=== PATIENT | female | born 1950 | race Two or more races ===

== ENCOUNTER 2024-07-26 17:59 | Inpatient (IN) | payer MEDICARE, OTHER ==
[~2024-07-26] VITALS: Ht 152.4 cm; Wt 49.9 kg
[2024-07-26] MEDS: LIDOCAINE 5% (PATCH) 1 EA PATCH TP SCH ×2 (19:30→19:50)
[2024-07-26] MEDS ORDERED: LIDOCAINE 5% (PATCH) 1 EA PATCH TP ONE ×2 (19:34→19:47)
[2024-07-26] MEDS ORDERED: predniSONE 20 MG TABLET ONE (19:35)
[2024-07-26] MEDS: predniSONE 20 MG TABLET PO ONE (19:39)
[2024-07-26 21:20] VITALS: BP 119/68; TEMP 97.7; O2SAT 98
[2024-07-26 21:48] LABS: BASOPHILS % (AUTO) 0.4 % (0.0-2.0); EOSINOPHILS # (AUTO) 0.1 K/uL (0.0-0.7); EOSINOPHILS % (AUTO) 0.4 % (0.0-6.0); HEMATOCRIT 42 % (33-45); HEMOGLOBIN 14.2 g/dL (11.5-14.8); LYMPHOCYTES # (AUTO) 1.5 K/uL (0.8-4.8); LYMPHOCYTES % (AUTO) 12.1 % (20.0-44.0); MEAN CORPUSCULAR HEMOGLOBIN 32 PG (26.0-33.0); MEAN CORPUSCULAR HGB CONC 34 g/dl (31.0-36.0); MEAN CORPUSCULAR VOLUME 93 fL (82-100); MONOCYTES # (AUTO) 0.3 K/uL (0.1-1.30); MONOCYTES % (AUTO) 2.6 % (2.0-12.0); NEUTROPHILS # (AUTO) 10.9 K/uL (1.8-8.9); NEUTROPHILS % (AUTO) 84.5 % (43.0-81.0); PLATELET COUNT (AUTO) 173 K/uL (150-450); RED BLOOD CELL COUNT(AUTO) 4.48 MIL/uL (4.0-5.2); RED CELL DISTRIBUTION WIDTH 13.3 % (11.5-15.0); WHITE BLOOD COUNT (AUTO) 12.8 K/uL (4.3-11.0)
[2024-07-26 21:54] LABS: CALCIUM, SERUM 8.9 mg/dL (8.5-10.1); CREATININE 0.8 mg/dL (0.6-1.3)
[2024-07-26] MEDS ORDERED: ACETAMINOPHEN 325 MG TABLET PO PRN (22:30)
[2024-07-26] MEDS ORDERED: ONDANSETRON HCL/PF 4 MG/2 ML VIAL IVP PRN (22:30)
[2024-07-26] MEDS ORDERED: ENOXAPARIN SODIUM 40 MG/0.4 ML DISP.SYRIN SQ ONE (22:34)
[2024-07-26] MEDS: ENOXAPARIN SODIUM 40 MG/0.4 ML DISP.SYRIN SQ SCH (22:35)
[2024-07-26] MEDS ORDERED: hydrALAZINE HCL IV 20 MG VIAL IV PRN (23:30)
[2024-07-27] MEDS ORDERED: TIOT18CA3 IH (00:33)
[2024-07-27] MEDS ORDERED: ROSU5TAB PO (00:33)
[2024-07-27] MEDS ORDERED: NIFE30TA2 PO (00:33)
[2024-07-27] MEDS ORDERED: CLON0.5T4 PO (00:33)
[2024-07-27] MEDS: MORPHINE SULFATE INJ 2 MG/ML DISP.SYRIN IV PRN (01:35)
[2024-07-27] MEDS: clonazePAM 0.5 MG TABLET PO SCH (02:05)
[2024-07-27 07:06] LABS: BASOPHILS % (AUTO) 0.5 % (0.0-2.0); HEMATOCRIT 38 % (33-45); LYMPHOCYTES # (AUTO) 1.2 K/uL (0.8-4.8); LYMPHOCYTES % (AUTO) 19.2 % (20.0-44.0); MEAN CORPUSCULAR HEMOGLOBIN 32 PG (26.0-33.0); MEAN CORPUSCULAR HGB CONC 34 g/dl (31.0-36.0); MEAN CORPUSCULAR VOLUME 92 fL (82-100); MONOCYTES # (AUTO) 0.3 K/uL (0.1-1.30); MONOCYTES % (AUTO) 4.5 % (2.0-12.0); NEUTROPHILS # (AUTO) 4.6 K/uL (1.8-8.9); NEUTROPHILS % (AUTO) 75.8 % (43.0-81.0); PLATELET COUNT (AUTO) 168 K/uL (150-450); RED BLOOD CELL COUNT(AUTO) 4.13 MIL/uL (4.0-5.2); RED CELL DISTRIBUTION WIDTH 12.9 % (11.5-15.0); WHITE BLOOD COUNT (AUTO) 6.1 K/uL (4.3-11.0)
[2024-07-27 07:31] LABS: ALBUMIN 3.2 g/dL (3.4-5.0); BILIRUBIN,TOTAL 0.6 mg/dL (0.2-1.0); CALCIUM, SERUM 8.5 mg/dL (8.5-10.1); CREATININE 0.8 mg/dL (0.6-1.3); MAGNESIUM 2.1 mg/dL (1.8-2.4); PHOSPHORUS 3.9 mg/dL (2.5-4.9); POTASSIUM 4.1 mmol/L (3.5-5.1); TOTAL PROTEIN, SERUM 6.4 g/dL (6.4-8.2)
[2024-07-27 08:00] VITALS: BP 130/61; TEMP 97.3; O2SAT 98
[2024-07-27] MEDS: DOCUSATE SODIUM LIQ 100 MG/10 ML UDC PO SCH (08:23)
[2024-07-27] MEDS: POLYETHYLENE GLYCOL 3350 17 GM POWD.PACK PO SCH (08:23)
[2024-07-27] MEDS: GABAPENTIN 100 MG CAPSULE PO SCH (13:11)
[2024-07-27] MEDS: CELECOXIB 100 MG CAPSULE PO SCH (13:11)
[2024-07-27 16:00] VITALS: BP 136/69; TEMP 97.7
[2024-07-27] MEDS: DOCUSATE SODIUM 100 MG CAPSULE PO SCH (17:13)
[2024-07-27 20:00] VITALS: BP 127/60; TEMP 98.2; O2SAT 97
[2024-07-28] MEDS: PANTOPRAZOLE 40 MG TABLET.DR PO SCH (07:43)
[2024-07-28 08:00] VITALS: BP 134/59; TEMP 98.2; O2SAT 98
[2024-07-28 16:30] VITALS: BP 134/56; TEMP 98.2; O2SAT 100
[2024-07-28 20:00] VITALS: BP_SYST 127; BP_DIAS 53; BP_DIAS 58; TEMP 97.7; O2SAT 97
[2024-07-29 08:22] VITALS: BP 128/66; TEMP 98; O2SAT 99
[2024-07-29] MEDS: MINERAL OIL/PETROL OINT 396 GM JAR TP SCH (10:24)
[2024-07-29] MEDS ORDERED: GABA100C PO (11:45)
[2024-07-29] MEDS ORDERED: PANT40TA49 PO (11:45)
[2024-07-29 13:52] LABS: THYROID STIMULATING HORMONE 2.18 uIU/mL (0.358-3.74)
[2024-07-29 15:19] LABS: APPEARANCE,URINE CLEAR (CLEAR); BILIRUBIN,URINE NEGATIVE (NEGATIVE); BLOOD, URINE TRACE-INTA Ery/uL (NEGATIVE); COLOR,URINE YELLOW (YELLOW); KETONES,URINE NEGATIVE (NEGATIVE); LEUKOCYTE ESTERASE ,URINE NEGATIVE (NEGATIVE); NITRITE, URINE NEGATIVE (NEGATIVE); PROTEIN,URINE NEGATIVE (NEGATIVE); UGLUCOSE NEGATIVE (NEGATIVE); UROBILINOGEN,URINE 0.2 EU/dL (0.2)
[2024-07-29 15:50] LABS: ADD URINE CULTURE NO; RBC,URINE 0-2 /HPF (0-2); WBC,URINE 0-2 /HPF (0-3)
[2024-07-29 15:51] LABS: BACTERIA,URINE Few /HPF (None Seen); SQUAMOUS EPITHELIAL CELL,UR Few /HPF (None Seen)
[2024-07-29 16:03] VITALS: BP 144/56; TEMP 98.1; O2SAT 97
[2024-07-30 12:07] LABS: FOLIC ACID 10.7 ng/mL (>3.0)
== END 2024-07-29 18:47 | DRG 641 ==
LOC: ER 18:51 → MED 22:54
PROVIDERS: ADMIT Internal Medicine; ATTEND Internal Medicine
DX: R62.7 Adult failure to thrive (principal); F41.9 Anxiety disorder, unspecified; I73.00 Raynaud's syndrome without gangrene; G89.4 Chronic pain syndrome; D72.829 Elevated white blood cell count, unspecified; I10 Essential (primary) hypertension; Z68.21 Body mass index [BMI] 21.0-21.9, adult; R53.1 Weakness; M51.360 Other intervertebral disc degeneration, lumbar region with discogenic back pain only; K58.9 Irritable bowel syndrome, unspecified; Z66 Do not resuscitate; M43.16 Spondylolisthesis, lumbar region
CPT/HCPCS: 36415; 72074-TC; 72100-TC; 80048-TC; 80053-TC; 81001; 82607-TC; 83735-TC; 83921; 84100-TC; 84425; 84443-TC; 85025-TC; 97110-TC; 97116-TC; 97530-TC; 97535-TC; G0378; J1650; J2270